=== PATIENT | male | born 1955 | race Caucasian/White ===

== ENCOUNTER 2017-06-09 06:16 | Day surgery (SDC) | payer BC ==
[~2017-06-09 06:16] MED LIST: Buffered Lidocaine 0.9% SYRIN* 5 ML/SYR SYRINGE INTRADERM ONE
[2017-06-09] MEDS ORDERED: Buffered Lidocaine 0.9% SYRIN* 5 ML/SYR SYRINGE ONE (06:29)
[2017-06-09] MEDS ORDERED: fentaNYL* 50 MCG/ML 2 ML VIAL (100 MCG VIAL) ONE (07:27)
[2017-06-09] MEDS ORDERED: Midazolam* 1 MG/ML 2 ML VIAL (2 MG) ONE (07:27)
[2017-06-09] MEDS ORDERED: Propofol* 10 MG/ML 20 ML BTL IV PUSH ONE (07:27)
[2017-06-09] MEDS ORDERED: Lidocaine 2% PF * 5 ML VIAL ONE (07:27)
[2017-06-09] MEDS ORDERED: Naloxone* 0.4 MG/ML 1 ML VIAL IV PRN (07:32)
[2017-06-09 09:21] VITALS: BP 135/91
--- NOTE | 2017-06-09 09:35 | PRO ---
PROCEDURE REPORT: DATE OF PROCEDURE: 06/09/17 PROCEDURE PERFORMED: Colonoscopy. INDICATIONS: Screening, average risk. REFERRING PHYSICIAN: None. MEDICATIONS GIVEN: Per the anesthesia record. DESCRIPTION OF PROCEDURE: After the colonoscopy procedure, including the risks , benefits, and alternatives, not limited to perforation, surgery, and/or were explained to Mr. Booker, written consent was then obtained. Sedation was administered via anesthesia services. A rectal exam was performed. The rectal exam was unremarkable. Olympus colonoscope was then inserted into the patient' s rectum and advanced very carefully through the entirety of the colon and into the distal terminal ileum. The distal few centimeters of the terminal ileal mucosa was unremarkable. Scope was then withdrawn through the cecal base. Careful and thorough inspection within the cecal base did not reveal any abnormalities. Quality of the preparation was fair. The distal terminal ileum was evaluated, intubated and was unremarkable. Scope was then withdrawn in a very careful manner over the next 11 minutes through the remainder of the colon. He did have 1 small nodule in the mid transverse colon. It was biopsied x1. No other abnormalities were seen. No masses, polyps, AVMs or diverticulosis was seen. In the rectum, retroflexion maneuver was unremarkable. Scope was withdrawn from the patient. He tolerated the procedure well and was returned to the recovery room in stable condition. IMPRESSION: 1. Complete colonoscopy into the terminal ileum with biopsy of mid transverse colon nodule. 2. Anesthesia provided by the anesthesiology group. 3. Mid transverse nodule status post biopsy. 4. I will follow up on the biopsy. 5. The patient likely will need a repeat colonoscopy in 10 years from now. [id number]/[facility] #: [id number] KYLE
== END 2017-06-09 09:38 | disposition home or self-care (01) ==
LOC: OR 06:16
PROVIDERS: ATTEND Internal Medicine Gastroenterology
DX: Z12.11 Encounter for screening for malignant neoplasm of colon (principal); K63.9 Disease of intestine, unspecified; I10 Essential (primary) hypertension; K21.9 Gastro-esophageal reflux disease without esophagitis; Z68.31 Body mass index [BMI] 31.0-31.9, adult
CPT/HCPCS: 88305; J2250; J2704; J3010